=== PATIENT | female | born 1975 | race African-American/Black ===

== ENCOUNTER 2016-06-30 06:13 | Observation (INO) | payer BC ==
[2016-06-24 08:43] LABS: BASOPHILS 0.2 %; BASOPHILS ABSOLUTE 0.02 10/3/uL (0.0-0.16); EOSINOPHILS ABSOLUTE 0.16 10/3/uL (0.0-0.53); HEMATOCRIT 32.8 % (36.0-48.0); HEMOGLOBIN 10.1 g/dL (12.0-16.0); IMMATURE GRANULOCYTES 0.1 %; IMMATURE GRANULOCYTES ABSOLUTE 0.01 10/3/uL (0.0-0.11); LYMPHOCYTES 27.3 %; LYMPHOCYTES ABSOLUTE 2.19 10/3/uL (0.67-4.30); MEAN CORPUS HGB CONC 30.8 g/dL (32.0-36.0); MEAN CORPUSCULAR HEMOGLOB 19.6 pg (26.0-34.0); MEAN CORPUSCULAR VOLUME 63.7 fL (80-100); MONOCYTES 5.6 %; MONOCYTES ABSOLUTE 0.45 10/3/uL (0.21-1.20); NEUTROPHILS 64.8 %; PLATELET COUNT 448 10/3/uL (150-400); RBC DISTRIBUTION WIDTH 20.3 % (12.0-16.0); RED CELL COUNT 5.15 10/6/uL (4.0-5.6)
[2016-06-24 08:46] LABS: MANUAL DIFF NO %
[2016-06-24 08:48] LABS: PARTIAL THROMBO TIME 29.3 SEC (22.5-37.2)
[2016-06-24 08:53] LABS: BUN (BLOOD UREA NITROGEN) 6 MG/DL (6-23); CALCIUM, SERUM 9.3 MG/DL (8.5-10.4); CHLORIDE, SERUM 105 MMOL/L (96-112); CO2 (CARBON DIOXIDE) 27 MMOL/L (24-34); CREATININE 0.72 MG/DL (0.55-1.02); GFR AFRICAN AMERICAN 121 ML/MIN (>=60); GFR NON AFRICAN AMERICAN 105 ML/MIN (>=60); GLUCOSE, SERUM 115 MG/DL (60-99); POTASSIUM, SERUM 3.9 MMOL/L (3.5-5.3); SODIUM, SERUM 140 MMOL/L (135-148)
[2016-06-24 09:34] LABS: ANISOCYTOSIS 1+ (5-10/OIF) (0-5/OIF); HYPOCHROMIA 1+ (3-10/OIF) (0-2/OIF); PLATELET ESTIMATE SLT INC (ADEQUATE); TARGET CELLS OCC (1-2/OIF) (0-1/OIF)
--- NOTE | ~2016-06-30 | OP ---
Record Of Operation [facility] [address] [place]. [address] NAME: VALENTINA JAIN EDGAR : 75 STATUS : ADM IN [facility]#: [id number] AGE: 40 ADM/REG DATE : 06/30/16 MR#: [id number] REPORT SERV DATE: 06/30/16 DICTATED BY: RIMA BISHOP DATE: 06/30/16 REPORT STATUS : Draft TRANSCRIBED BY: MODL DATE: 06/30/16 DATE OF PROCEDURE: 06/30/2016 SURGEON: Rima Bishop MD. SERVICE: Otolaryngology. PREOPERATIVE DIAGNOSES: 1. Bilateral large thyroid nodules. 2. Compressive symptoms. POSTOPERATIVE DIAGNOSES: 1. Bilateral large thyroid nodules. 2. Compressive symptoms. PROCEDURE PERFORMED: Total thyroidectomy. INDICATIONS FOR PROCEDURE: The patient is a 40-year-old female with a 3.8 cm left thyroid nodule causing right tracheal deviation and a greater than 3 cm right thyroid nodule. These nodules have been present for quite some time. Previous biopsy has been benign. However, she has noted cough, feeling of pressure sensation and occasional dyspnea, and dysphagia on occasion which she attributes to her thyroid nodules. She has been on a reflux regimen over the past month and a half without significant change in her symptoms. She presents for surgical management. ANESTHESIA: General endotracheal with NIMs monitoring system. RETAINED ITEMS: #10 NIXON drain. COMPLICATIONS: None. FINDINGS: Large, desmoplastic thyroid gland with retropharyngeal extension as well as anterior thyroid ligament thickening and fibroblastic change. FLUIDS: Crystalloid. ESTIMATED BLOOD LOSS: 30 mL. DESCRIPTION OF PROCEDURE: The patient was identified in the preoperative holding, where informed consent was ensured. She was brought to the operating room, placed on the operating room table in supine position. General endotracheal anesthesia was induced with GlideScope to confirm placement of the NIMS monitoring system without difficulty. The patient was then prepped and draped in the standard sterile surgical fashion. A time-out was performed to identify the patient and discuss the operative plan. The previously marked neck incision was then injected with approximately 6 mL of 1% lidocaine with 1:100,000 epinephrine. This was allowed to take full effect. Prior to proceeding with the surgery, Record Of Operation [facility] [address] [facility] [place]. [address] NAME: JAINVALENTINA Sampson : 75 STATUS : ADM IN PAT#: [id number] AGE: 40 ADM/REG DATE : 06/30/16 MR#: [id number] REPORT SERV DATE: 06/30/16 DICTATED BY: RIMA BISHOP DATE: 06/30/16 REPORT STATUS : Draft TRANSCRIBED BY: MODKurt DATE: 06/30/16 the NIMs monitor electrodes were affixed to the appropriate channels. The larynx was finger tapped bilaterally with appropriate production of sound. The nerve monitor was found to be in appropriate working order and used for the remainder of the case to monitor the recurrent laryngeal nerves. Attention was initially turned to the patient's left side. The planned incision was made through the skin and into the subcutaneous tissue. A combination of sharp and blunt dissection was used to identify the platysma muscle. Subplatysmal flaps were elevated in a circumferential fashion. The strap muscles overlying the thyroid gland were then identified in the midline raphe. The sternothyroid muscle had some desmoplastic changes and it was difficult to remove from the anterior surface of the thyroid gland bilaterally. Consequently, this was divided and ultimately reapproximated at the conclusion of the procedure. The left thyroid gland was freed from all overlying fascia. Blunt dissection with Kittner was used to identify the cricothyroid muscle and established a space between the cricothyroid muscle and the superior pole vessels. 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 The superior pole vessels were ligated with Harmonic Scalpel. The gland was then retracted inferiorly. Finger dissection was used to retract the gland on the anterior surface of the trachea. After all fascial bands were freed, search for the recurrent laryngeal nerve was ensued. This was found in its standard location. All overlying thyroid gland fascia was freed off this nerve, and the nerve was kept in the surgical bed. Additionally, the superior thyroid and inferior thyroid glands on this side were identified and kept within the surgical bed. This was divided at the isthmus, and the left thyroid gland was passed off for permanent analysis. A similar procedure was performed on the contralateral side with similar difficulty due to desmoplasia. The superior thyroid pole vessels were identified with some difficulty after establishing a space between the cricothyroid and the superior pole vessels. The Harmonic scalpel was used to take these down. Blunt dissection was used to free up the thyroid gland itself and to retract this on the anterior surface of the trachea. The search for the recurrent laryngeal nerve was ensued, and was found in its standard location. This was kept in the surgical bed. On this side, the superior parathyroid gland was identified, but the inferior parathyroid gland was not seen. Once adequately at a far distance from the recurrent laryngeal nerve, the remaining thyroid gland was taken off the anterior surface of the trachea with Bovie cautery. Careful hemostasis was ensured with bipolar cautery. At this point, the recurrent laryngeal nerves were stimulated bilaterally. The left recurrent laryngeal nerve was stimulated proximally at 1 milliamp at 152 microvolts. There was some weakness distally which did not stimulate. On the right, at 1 milliamps, the nerve was stimulated at 348 microvolts. A Valsalva maneuver was performed with no identified sources of bleeding. Surgicel was placed over the course of the recurrent laryngeal nerve. A NIXON drain was then placed and secured to the skin with a 2-0 silk suture. It should be noted that preoperative PTH was 97. Postoperative PTH was confirmed to be 112, thus indicating adequate function of the parathyroid glands. The strap muscles that were previously divided were reapproximated appropriately. The midline raphe was then reapproximated with 3-0 Vicryl sutures in the interrupted fashion. Deep dermal sutures were placed with 3-0 Vicryl sutures. The skin was closed with a 5-0 Monocryl in a running subcuticular fashion. Steri-Strips were placed. The patient was cleaned of all preparation Record Of Operation [address] [address] NAME: VALENTINA JAIN : 75 STATUS : ADM IN [facility]#: [id number] AGE: 40 ADM/REG DATE : 06/30/16 MR#: [id number] REPORT SERV DATE: 06/30/16 DICTATED BY: RIMA BISHOP DATE: 06/30/16 REPORT STATUS : Draft TRANSCRIBED BY: ROBINSON DATE: 06/30/16 and turned over to Anesthesia for awakening and extubation. She was transported to the PACU in stable condition. On postoperative assessment, voice appears to achieve good projection. The patient is having no stridor or difficulty breathing. She will be admitted overnight for drain management and pain control. /ROBINSON Rima Bishop MD / [id number] CC: MD PRABHAKAR Adams
[~2016-06-30 06:13] MED LIST: FERROUS SULF325 M1 PO; FLEX PO; MOBIC15 MG PO; PRILOSEC40 MG PO; WELLXL150 PO
[2016-06-30 08:29] LABS: PTH (INTRAOPERATIVE) 97.9 PG/ML (10.0-65.0); PTH TAT 0 Hrs 00 Mins
[2016-06-30 10:34] LABS: PTH (INTRAOPERATIVE) 112.7 PG/ML (10.0-65.0); PTH TAT 0 Hrs 00 Mins
[2016-06-30 21:11] LABS: CALCIUM, SERUM 8.5 MG/DL (8.5-10.4)
[2016-07-01 05:27] LABS: CALCIUM, SERUM 8.9 MG/DL (8.5-10.4)
[2016-07-01 05:30] LABS: INTACT PTH (ICMA) 71.5 PG/ML (10.0-65.0)
[2016-07-01] MEDS ORDERED: DSS PO (09:40)
[2016-07-01] MEDS ORDERED: ZOFRAN4 PO (09:41)
[2016-07-01] MEDS ORDERED: SYNTHROID200 MCG PO (09:41)
[2016-07-01] MEDS ORDERED: IBU600 PO (09:41)
[2016-07-01] MEDS ORDERED: NORCO1 TA2 PO (09:41)
== END 2016-07-01 11:07 | disposition home or self-care (01) ==
LOC: SDC 06:13 → 4SO 11:25
PROVIDERS: Otolaryngology
PROC: 0GTK0ZZ Resection of Thyroid Gland, Open Approach (ICD-10-PCS; principal; 2016-06-30 07:15)
DX: E04.2 Nontoxic multinodular goiter (principal); K21.9 Gastro-esophageal reflux disease without esophagitis; F41.9 Anxiety disorder, unspecified; M19.90 Unspecified osteoarthritis, unspecified site; J30.2 Other seasonal allergic rhinitis; D64.9 Anemia, unspecified; F32.9 Major depressive disorder, single episode, unspecified; Z98.51 Tubal ligation status
CPT/HCPCS: 71020; 80048; 82310; 82330; 83735; 83970; 84703; 85025; 85730; 88307; 96374; 96375; A9270-GY; G0378; J0360; J0690; J2250; J2405; J2710; J3010

== ENCOUNTER 2016-08-22 08:40 | Day surgery (SDC) | payer BC ==
[2016-08-19 09:44] LABS: HEMATOCRIT 32.5 % (36.0-48.0); HEMOGLOBIN 10.1 g/dL (12.0-16.0)
--- NOTE | ~2016-08-22 | OP ---
Record Of Operation [facility] [address] [place]. [address] NAME: VALENTINA JAIN : 75 STATUS : REG [facility] PAT#: [id number] AGE: 40 ADM/REG DATE : 08/22/16 MR#: [id number] REPORT SERV DATE: 08/22/16 DICTATED BY: RIMA BISHOP DATE: 08/22/16 REPORT STATUS : Draft TRANSCRIBED BY: MODL DATE: 08/22/16 DATE OF PROCEDURE: 08/22/2016 SURGEON: Rima Bishop MD. SERVICE: Otolaryngology. PREOPERATIVE DIAGNOSIS: Left vocal fold paresis. POSTOPERATIVE DIAGNOSIS: Left vocal fold paresis. PROCEDURES PERFORMED: 1. Direct laryngoscopy. 2. Left vocal fold injection with 0.7 mL of calcium hydroxylapatite, Prolaryn Voice Plus. INDICATIONS FOR PROCEDURE: The patient is a 40-year-old female, who underwent total thyroidectomy several months ago. In the postoperative period, she reports persistent hoarseness and was found to have left vocal fold paresis. She presents for Prolaryn voice injection. ANESTHESIA: General endotracheal. SPECIMENS: None. ESTIMATED BLOOD LOSS: Minimal. RETAINED ITEMS: None. COMPLICATIONS: None. FINDINGS: Normal-appearing voice box. DESCRIPTION OF PROCEDURE: The patient was identified in the preoperative holding, where informed consent was ensured. She was brought to the operating room, placed on the operating room table in supine position. General endotracheal anesthesia was induced without difficulty. A time-out was performed to identify the patient and discuss operative plan. The patient was then prepped and draped in the standard fashion for this procedure. Head of the bed was turned to 90 degrees to facilitate access to the head and neck. An upper tooth guard was placed. A Dedo laryngoscope was inserted into the oral cavity, and the voice box was brought into view. The patient was then suspended from the [place] tray. Using the rigid telescope and video tower, the left vocal fold was directly visualized. At approximately the level of the arcuate line in the paraglottic space, 0.7 mL of Prolaryn calcium hydroxylapatite was injected with good slumping of the left vocal fold. All residual calcium hydroxylapatite was suctioned from the patient's overlying left vocal fold. She was then turned over to Anesthesia for awakening and extubation, and transported to the PACU in stable condition. Record Of Operation [facility] [address] [place]. [address] NAME: VALENTINA JAIN : 75 STATUS : REG [facility] PAT#: [id number] AGE: 40 ADM/REG DATE : 08/22/16 MR#: [id number] REPORT SERV DATE: 08/22/16 DICTATED BY: RIMA BISHOP DATE: 08/22/16 REPORT STATUS : Draft TRANSCRIBED BY: ROBINSON DATE: 08/22/16 DISPOSITION: The patient will follow up in approximately four weeks for postoperative evaluation. /ROBINSON Rima Bishop MD / [id number] CC: MD GONZÁLEZ Adams
[~2016-08-22 08:40] MED LIST changes: +DSS PO; +IBU600 PO; +NORCO1 TA2 PO; +SYNTHROID200 MCG PO; +ZOFRAN4 PO
== END 2016-08-22 14:49 | disposition home or self-care (01) ==
LOC: SDC 08:40
PROVIDERS: Otolaryngology
PROC: 3E0F8GC Introduction of Other Therapeutic Substance into Respiratory Tract, Via Natural or Artificial Opening Endoscopic (ICD-10-PCS; principal; 2016-08-22 09:30)
DX: J38.01 Paralysis of vocal cords and larynx, unilateral (principal); K21.9 Gastro-esophageal reflux disease without esophagitis; D64.9 Anemia, unspecified; F32.9 Major depressive disorder, single episode, unspecified; E04.2 Nontoxic multinodular goiter; Z90.89 Acquired absence of other organs; Z68.42 Body mass index [BMI] 45.0-49.9, adult
CPT/HCPCS: 84703; 85014; 85018; A9270-GY; C1878; J2405